=== PATIENT | male | born 1950 | race Caucasian/White ===

== ENCOUNTER 2016-10-24 19:04 | Observation (INO) | payer OTHER ==
[~2016-10-24] VITALS: Ht 190.5 cm; Wt 105.2 kg
[2016-10-24 19:28] VITALS: BP 135/76; PULSE 78; RESP 21; O2SAT 96
[2016-10-24] MEDS ORDERED: BIMA2.5D5 AFFECT_EYE (19:32)
[2016-10-24 19:54] LABS: BASOPHILS % (AUTO) 0.4 % (0-3); EOSINOPHILS % (AUTO) 1.5 % (0-5); MONOCYTES % (AUTO) 11.2 % (4-12); Mean Corpuscular Hemoglobin 29.9 pg (27.0-35.0); Mean Corpuscular Volume 87.6 fL (81-100); NEUTROPHILS % (AUTO) 54.3 % (40-74); Platelet Count 183 bil/L (150-400)
--- NOTE | 2016-10-24 20:00 | ED.REPORT ---
HPI-General Illness Date of Service Oct 24, 2016 ED Provider: Jagdeep Felix MD A 66 year old male with a history of throat cancer is brought to the ED via EMS due to a syncopal episode. The pt was at home and had consumed alcohol and marijuana when he experienced this episode. He was sitting at the time and did not fall. The pt was unconscious for a few moments until a family member applied a wet cloth to his neck. Paramedics found the pt pale and diaphoretic with a postural blood pressure and an abnormal EKG in the field. The pt was given aspirin en route. He now feels "slightly out of sorts" and believes that his symptoms can be attributed to his fairly heavy marijuana use this evening. He denies chest pain, abdominal pain, shortness of breath, palpitations or headache. The pt experienced similar symptoms once many years ago. Nursing Notes Stated Complaint: SYNCOPE Chief Complaint: Chest Pain Nursing Notes Reviewed: Yes Allergies: Coded Allergies: Sulfa (Sulfonamide Antibiotics) (Verified Allergy, Unknown, 10/24/16) codeine (Verified Allergy, Unknown, 10/24/16) Scheduled Bimatoprost (Lumigan) 45 Drop/2.5 Ml Ophsoln 45 DROP AFFECT_EYE HS General Time Seen by MD: 19:25 Chief Complaint Other (syncope) Hx Obtained From: Patient, EMS Arrived By: Ambulance Sudden in Onset?: Yes Onset Occurred: 1 - 4 hours ago Recent Healthcare: No recent doctor visit, No recent hospitalization Similar Sx Previous: No Past Medical History Past Medical History throat cancer Past Surgical History biopsies Smoking History Unknown if Ever Smoker Social History Alcohol Use: "Social" Drug Use: THC Other Social History: Good social support, Ambulatory Status Independent Review of Systems pale Full Review of Systems Respiratory: Denies: Non-productive cough, Shortness of breath Cardiovascular: Denies: Chest pain, Palpitations GI: Denies: Abdominal pain, Diarrhea, Nausea, Vomiting Musculoskeletal: Denies: Back pain Skin: Reports Diaphoresis, Denies Rash Neurologic: Reports: Syncope, Denies: Headache Complete sys rev & neg: except as marked. Physical Exam Constitutional: Well-developed, well-nourished. Not diaphoretic. Head: Normocephalic and atraumatic. Mouth/Throat: Oropharynx is clear and moist. No oropharyngeal exudate. Eyes: EOM are normal. Pupils are equal, round, and reactive to light. Neck: Supple, no tracheal deviation. Cardiovascular: Normal rate, regular rhythm. Equal and intact distal pulses throughout. Normal S1 and S2. No murmurs, rubs or gallops. Pulmonary/Chest: Effort normal and breath sounds normal. No respiratory distress. Abdominal: Soft. No distension. There is no tenderness, rebound, or guarding. Bowel sounds present. Musculoskeletal: Range of motion grossly intact, moving all extremities. No edema or tenderness appreciated. Neurological: AOx3. Grossly nonfocal exam. Strength and sensation intact and equal to bilateral upper and lower extremities. Skin: Warm and dry, no rashes or pallor appreciated. Psychiatric: Appropriate mood and affect. Behavior appears normal. Vital Signs Vital Signs Date Time Temp Pulse Resp B/P Pulse Ox O2 Delivery O2 Flow Rate FiO2 10/24/16 21:08 76 10 136/71 97 Room Air 10/24/16 19:28 36.4 78 21 135/76 96 Room Air Initial VS: Reviewed Interpretation & Diagnostics Lab Results Interpretation Result Diagram: 10/24/16194310/24/161943 Test 10/24/16 19:44 10/24/16 19:50 White Blood Count 5.5th/mm3 (3.8-10.1) Red Blood Count 5.09mil/mm3 (4.40-5.80) Hemoglobin 15.2g/dL (13.8-17.2) Hematocrit 44.6% (41.0-50.0) Mean Corpuscular Volume 87.6fL (81-100) Mean Corpuscular Hemoglobin 29.9pg (27.0-35.0) Mean Corpuscular Hemoglobin Concent 34.1% (32.0-37.0) Red Cell Distribution Width 12.6% (12.3-15.4) Platelet Count 183bil/L (150-400) Neutrophils (%) (Auto) 54.3% (40-74) Lymphocytes (%) (Auto) 32.4% (14-46) Monocytes (%) (Auto) 11.2% (4-12) Eosinophils (%) (Auto) 1.5% (0-5) Basophils (%) (Auto) 0.4% (0-3) Sodium Level 139mEq/L (134-144) Potassium Level 3.6mEq/L (3.5-5.2) Chloride Level 103mEq/L (97-108) Carbon Dioxide Level 21mmol/L (18-29) Blood Urea Nitrogen 14mg/dL (8-27) Creatinine 0.86mg/dL (0.76-1.27) Estimat Glomerular Filtration Rate 94mL/min (>59) Glucose Level 120mg/dL (60-99) Calcium Level 8.9mg/dL (8.5-10.1) Magnesium Level 1.9mg/dL (1.6-2.6) Total Bilirubin 0.4mg/dL (0.0-1.2) Aspartate Amino Transf (AST/SGOT) 18U/L (0-50) Alanine Aminotransferase (ALT/SGPT) 15U/L (0-44) Alkaline Phosphatase 54U/L (25-160) Troponin T < 0.010ug/L (0.0-0.011) Total Protein 6.7g/dL (6.4-8.4) Albumin 3.7g/dL (3.4-5.0) Hold Spencer Top Tube Received (Received) ECG Interpretation ECG Interpretation: normal sinus rhythm with a rate of [address] interval [address] ST elevation, lateral leads Time: 19:33 Interpreted by: ED physician X-Ray Chest Interpretation Chest Xray Interpretation: IMPRESSION: No acute disease. Dictated by: Pa Westbrook M.D. on 10/24/2016 at 20:25 Approved by: Pa Westbrook M.D. on 10/24/2016 at 20:27 Interpretation / Wet Read by: Interpret - Radiologist CT Head Interpretation IMPRESSION: No acute intracranial process Dictated by: Pa Westbrook M.D. on 10/24/2016 at 21:38 Approved by: Pa Westbrook M.D. on 10/24/2016 at 21:40 Interpretation / Wet Read by: Interpret - Radiologist Re-Eval/Medical Decision Med Decision/Clinical Course In summary, 66-year-old male presenting to the ED for evaluation after syncopal episode shortly prior to arrival. He did not have any chest pain, palpitations , or dyspnea surrounding the incident that would suggest a cardiac cause, however his EKG does demonstrate some nonspecific ST changes in the lateral leads. The EMS EKGs did seem to have some ST elevation in the lateral leads without reciprocal change. No known cardiac history. However, given his age and these changes, he is at high risk for a serious cause for his syncope and needs admission for telemetry, further evaluation and management, possible stress test/echo. Source of Hx: Old records Time of Eval: 21:04 Patient Status: Condition improved Re-Evaluation/Progress Note: Pt rechecked, who is resting. He is informed of his EKG findings and the need for admission. The pt understands and agrees with the plan. All questions are addressed at this time. Consultation : Referral / Consult Name: Deysi Law DO Consulted With: Hospitalist Call Returned at: 21:25 Principal Biostatistician: Agrees with eval, Agrees with plan, Accepts admit Note: Spoke with Dr. Law, hospitalist, regarding pt's case. Dr. Law agrees with the evaluation and agrees to admit the pt. Counseled Regarding: Diagnosis, Lab results, Need for admission Discharge & Departure Primary Impression: Syncope Syncope type: unspecified Qualified Code: R55 - Syncope and collapse Disposition: ADMITTED TO HOSPITAL Discharge Condition All VS Reviewed: Yes Condition: Stable Referrals: [facility] Scribe Attestation Portions of this note were transcribed by Janell Rocha. I, Dr. Felix personally performed the history, physical exam and medical decision-making; I reviewed and confirmed the accuracy of the information in the transcribed note. Signed by: Luana Stanford, 10/24/2016 and 2147. copies to: [facility] Jagdeep Felix MD Oct 24, 2016 20:00 JANELL ROCHA Oct 24, 2016 20:37
--- NOTE | 2016-10-24 20:28 | DRSVH ---
PROCEDURE: X-RAY CHEST ONE VIEW, PORTABLE ([id number]) INDICATIONS: SYNCOPE TECHNIQUE: One view of the chest was acquired. COMPARISON: None. FINDINGS: Surgical changes and devices: Numerous clips projecting in left base of neck. Lungs and pleura: No pleural effusions or pneumothorax. Lungs are clear. Mediastinum: Mediastinal contours appear normal. Heart size is normal. Bones and chest wall: No suspicious bony lesions. Overlying soft tissues appear unremarkable. IMPRESSION: No acute disease. Dictated by: Pa Westbrook M.D. on 10/24/2016 at 20:25 Approved by: Pa Westbrook M.D. on 10/24/2016 at 20:27
[2016-10-24 20:30] LABS: TROPONIN T < 0.010 ug/L (0.0-0.011)
[2016-10-24 20:39] LABS: Magnesium 1.9 mg/dL (1.6-2.6)
[2016-10-24 21:08] VITALS: BP 136/71; PULSE 76; RESP 10; O2SAT 97
--- NOTE | 2016-10-24 21:42 | DRSVH ---
PROCEDURE: CT BRAIN WITHOUT CONTRAST ([id number]) INDICATIONS: syncope, hx of ?throat cancer TECHNIQUE: Noncontrast 4.5 mm thick angled axial sections acquired from the foramen magnum to the vertex, with c oronal reformats. COMPARISON: None. FINDINGS: Image quality: Excellent. CSF spaces: Basal cisterns are patent. No extra-axial fluid collections. The ventricles are symmet juanjose in size and shape. Brain: No intracranial bleeds or masses. There is cerebral volume loss for age, with resultant vent ricular and sulcal prominence. There are periventricular and deep white matter chronic small vessel ischemic changes. There is intracranial internal carotid artery atherosclerosis. Skull and face: Calvarium and visualized facial bones appear intact, without suspicious lesions. Sinuses: Visualized sinuses and mastoids are clear. IMPRESSION: No acute intracranial process Dictated by: Pa Westbrook M.D. on 10/24/2016 at 21:38 Approved by: Pa Westbrook M.D. on 10/24/2016 at 21:40
[2016-10-24] MEDS ORDERED: Alum-Mag Hydrox-Simeth 30 mL Suspension PO PRN ×2 (22:00)
[2016-10-24] MEDS ORDERED: Ondansetron 2 mg/mL 2 mL Inj IVPUSH PRN ×2 (22:00)
[2016-10-24] MEDS ORDERED: Polyethylene Glycol (PEG) 17 Gm Powder PO PRN (22:00)
--- NOTE | 2016-10-24 22:19 | PCM.HPMED ---
Subjective Date of Service Oct 24, 2016 Primary Provider: Admitting Physician: Deysi Law DO Primary Care Physician: Florecita Attending Physician: Deysi Law DO Admit Status: From the Emergency Department Chief Complaint: Loss of consciousness History of Present Illness: Jagdeep Moody is a pleasant 66-year-old gentleman history of throat cancer 9 years ago with recurrence 9 months ago status post resection, who presented to the [facility] emergency department via EMS after suffering a syncopal event. She describes being at a Father's Day celebration, having eaten dinner, and drank a couple glasses of wine, and then inhaled marijuana with some friends. He began to feel lightheaded and dizzy and sat down, and lost consciousness. He is accompanied by his to states he was probably out for at least 90 seconds, long enough for her to apply stimuli to his face, and then move him to the floor, apply cold washcloth to his neck and called EMT. He had similar instances roughly 30 years ago after consuming alcohol and smoking marijuana, he was never given an explanation for the event at that time. Currently ROS is cuevas negative. He denies any prodrome, any changes in vision or lites, denies preceding palpitations or tachycardia, denies any twitches or epileptiform activity, no gagging, continued breathing throughout the entire episode, not postictal. In the emergency department, temperature 36.4, 78, 21, 135/76, 96% on room air CBC unremarkable, CMP blood glucose 120, troponin negative EKG sinus rhythm, normal axis, rate 77, SC interval [address] elevation in lateral leads. Chest x-ray and head CT were negative for acute disease processes. Review of Systems: A comprehensive review of systems was conducted with the patient and found to be negative except as above in the history of presenting illness. 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 Both parents in their 80s. Social History Occupation: retired construction Hx Alcohol Use: Yes Hx Substance Use: Yes (marijuana couple times a week) Hx Tobacco Use: No Smoking Status: Never Smoker Living Arrangement: with Family Exam Vital Signs Vital Sign - Last Date Time Temp Pulse Resp B/P Pulse Ox O2 Delivery O2 Flow Rate FiO2 10/24/16 21:08 76 10 136/71 97 Room Air 10/24/16 19:28 36.4 Exam General: Laying in bed, no apparent distress. HEENT: Normocephalic, atraumatic, EOMI grossly, his membranes moist, neck supple without lymphadenopathy. PERRLA area Cardiovascular: Regular rate and rhythm, no clicks murmurs rubs, peripheral pulses 2/4 equal bilaterally Pulmonary: Clear to auscultation bilaterally, no W/R/R. Abdominal: Soft to palpation, bowel sounds present 4, no hepatosplenomegaly. Negative rebound. Extremities: No edema appreciated. No tenderness, asymmetry. Neuro: Neurologically grossly intact, strength is equal bilaterally upper and lower extremities.cranial nerves II through XII grossly intact MSK: Gait is normal, able to move extremities on their own volition, strength 5 out of 5 equal bilaterally to upper and lower extremities. Psych: Alert and oriented to person, time, place and situation, appropriate mood and affect Lab and Diagnostics Result Diagram: 10/24/16194310/24/161943 X-Rays, CTs and MRIs Chest x-ray performed 10/24/2016 IMPRESSION: No acute disease. Dictated by: Pa Westbrook M.D. on 10/24/2016 at 20:[address] w/o contrast from 10/24/2016 IMPRESSION: No acute intracranial process Dictated by: Pa Westbrook M.D. on 10/24/2016 at 21:38 12-lead ECG EKG sinus rhythm, normal axis, rate 77, SC interval [address] elevation in lateral leads. Assessment & Plan 66-year-old gentleman with history of throat cancer, reportedly in remission, presents after syncopal event after smoking marijuana and consuming alcohol. Syncopal event, POA, active -EKG positive for first-degree heart block, borderline ST elevation in lateral leads, electrolytes, blood sugar, head CT, chest x-ray, otherwise unremarkable. -Repeat EKG in the morning -Cardiac stress test in the morning -Tox screen -Orthostatics -Trend troponins every 4 hours -Place on telemetry for concern of nonsustained arrhythmia as etiology. First-degree heart block, probably chronic, POA, active -SC interval 248 ms, except for above-mentioned syncopal episode, previously asymptomatic. -Evaluation as above Chronic glaucoma, POA, active -Continue home medication bimatoprost -Heart block and syncope are not listed as known complications from this medication. Patient admitted under observation status with expected length of stay < 2 midnights for severity of present symptoms, complexities of treatment plan and risk for adverse events Pain Evaluation: Adequate Pain Control GI Prophylaxis: Not indicated VTE Prophylaxis: Sub-Q Heparin (Unfractionated) Resuscitation Status: CPR: Attempt Resuscitation Attending Statement The patient was seen and examined together with house staff on 10/24/2016 and I agree with the history, exam and plan as outlined in the note above. Ross Solis DO Oct 24, 2016 22:19 Deysi Law DO Oct 25, 2016 05:30
[2016-10-24 22:25] VITALS: BP 130/80; PULSE 77; RESP 18; O2SAT 95
[2016-10-24 22:54] VITALS: BP_SYST 149; BP_SYST 158; BP_DIAS 88; BP_DIAS 91; PULSE 79; PULSE 81
[2016-10-24 23:39] VITALS: PULSE 67
[2016-10-25] MEDS: Heparin 5,000 Unit/mL Inj SUBQ SCH ×2 (00:25→08:11)
[2016-10-25 04:58] VITALS: BP 127/72; PULSE 75; RESP 18; O2SAT 95
[2016-10-25 05:18] LABS: APPEARANCE,URINE CLEAR (CLEAR,HAZY); COLOR,URINE YELLOW (YELLOW); OCCULT BLOOD,URINE NEGATIVE (NEGATIVE); PH,URINE 5.5 (5.0-8.0); UROBILINOGEN,URINE NORMAL (NORMAL)
[2016-10-25 05:30] LABS: BASOPHILS % (AUTO) 0.2 % (0-3); EOSINOPHILS % (AUTO) 1.1 % (0-5); MONOCYTES % (AUTO) 10.5 % (4-12); Mean Corpuscular Hemoglobin 29.7 pg (27.0-35.0); Mean Corpuscular Volume 88.2 fL (81-100); NEUTROPHILS % (AUTO) 68.3 % (40-74); Platelet Count 183 bil/L (150-400)
--- NOTE | 2016-10-25 06:08 | NUR ---
Admit/Ortho's Pt arrived from the ED to [facility] room 3009. Denies chest pain, sob, n/v or abd discomfort. Explained the care plan to the pt. Pt verbalizes understanding about the care plan. Ortho VS done. No drop in SBP from lying to standing position. Pt has been NPO since SD for upcoming stress test. Telemetry monitoring noted SR 70's with 1st degree heart block. UA sent to lab and 12 lead EKG done by RT.
--- NOTE | 2016-10-25 08:56 | NUR ---
Pt off floor for Stress Test
[2016-10-25 10:10] VITALS: PULSE 71
[2016-10-25 12:46] VITALS: BP 133/85; PULSE 72; RESP 18; O2SAT 94
--- NOTE | 2016-10-25 13:57 | NUR ---
Social Work-initial assessment /readiness for discharge: Data:See initial assessment. Pt is a 66 y/o male who was admitted on 10/24/16 for syncope per H&P. Pt's insurance is [employer] and No PCP listed. EMR reviewed. SASHA met with pt and Radha at bedside, SW role explained. Pt is alert and oriented x3. Pt resides at home with his where he remains independent with ADLs. Pt drives and does not use any DME. Pt has no HH or SNF history. Pt has no fpc care or VA benefits. Pt and have not completed DPOA/ advanced directive and are not not interested in any information at this time. Per RN notes, pt has been up independent in his room. Pt's to provide transport home at discharge. SW provided phone number and plan on white board in room. No discharge needs identified. SW will continue to follow if needs arise. Assessment:Pt who is independent at baseline. Plan:Pt to discharge home when medically stable via POV. No discharge needs identified. SW will continue to follow if needs arise. YOBANY Lucas Addendum: 10/25/16 at 1402 by BABATUNDE CATALAN Amended: Links added.
--- NOTE | 2016-10-25 15:38 | DRSVH ---
PROCEDURE: 1 DAY TREADMILL STRESS TEST Rest and exercise myocardial perfusion SPECT with gated imaging and ejection fraction RADIOPHARMACEUTICAL: 8.3 mCi Tc-99m tetrafosmin IV at rest and 30.1 mCi Tc-99m tetrafosmin IV at peak exercise. [id number] was performed. INDICATIONS: SYNCOPE. TECHNIQUE: Radiopharmaceutical was injected at peak stress test, and also at rest. SPECT images wer e obtained. SPECT myocardial perfusion images were displayed in short axis, horizontal long axis, an d vertical long axis views. Gated images were reviewed using GoPollGoQU[employer] software. COMPARISON: None. CARDIAC STRESS: A standard George treadmill exercise tolerance test was performed by the patient under the supervision of an attending staff. The patient exercised for 6 minutes and 32 seconds; functional aerobic impai rment (ALEJANDRO) is 9%. Hemodynamic data: There is normal blood pressure and heart rate response to exercise stress. Dilip t achieved 99% of maximum predicted heart rate at peak exercise. Symptoms: Patient denied chest pain during exercise. EKG: No diagnostic EKG changes of ischemia; no ectopy. FINDINGS: Raw data: There is good myocardial labeling by radiotracer. No significant motion artifacts. Left ventricle function: Gated images demonstrate normal left ventricle wall thickening. No segment al wall motion abnormality. No transient ischemic dilation. The left ventricle resting end-diastoli c volume is 95 mL. Left ventricle stress ejection fraction is 78%; normal values are above 45%. Myocardial perfusion: There is normal distribution of activity in the left and right ventricular jaja cardium. No fixed or reversible perfusion defects. IMPRESSION: 1. No visualized ischemia on stress images. 2. No EKG changes of ischemia. 3. ALEJANDRO 9%. 4. Ejection fraction 78%. PQRS ATTESTATIONS: Measure 322 - Is this imaging test primarily performed on a low-risk surgery patient for preoperative evaluation within 30 days preceding their low-risk non-cardiac surgery? Low-risk surgery is defined as cardiac or myocardial infarction less than 1%, including (but not limited to) endoscopic pr ocedures, superficial procedures, cataract surgery, and excisional breast surgery: Answer: No Measure 323 - Is this imaging test performed primarily for the monitoring of an asymptomatic patient who had percutaneous coronary intervention on the visit date or within 2 years of the visit date? An swer: No Measure 324 - Is this imaging test performed primarily for the initial detection and risk assessment on an asymptomatic, low coronary heart disease patient? Low CHD risk definition = clinicians should consider the maximum number of available patient factors used to estimate risk based on [place] (A TP III criteria), typically age, gender, diabetes, smoking status, and use of blood pressure medicati on, and integrate age appropriate estimates for missing elements, such as LDL or standard blood press ure. Answer: No Dictated by: Petty Prescott M.D. on 10/25/2016 at 15:31 Approved by: Petty Prescott M.D. on 10/25/2016 at 15:36
--- NOTE | 2016-10-25 15:50 | PCM.DIMED ---
Discharge Instructions Date of Service Oct 25, 2016 Dates of Hospitalization Oct 24, 2016 at 21:40 Discharge Diagnosis Discharge Diagnosis # Syncopal event, POA, active -Due to combination of alcohol and marijuana use #Chronic glaucoma, POA, active Diet Discharge Diet: No restrictions Activity Discharge Activity: Limited until seen by PCP Call your provider Call your provider for: Fever or Chills, Shortness of breath, Bleeding, Chest pain, Vomitting, Excessive diarrhea, Weakness (unilateral) Patient Instructions Patient Instructions You were hospitalized to due to syncopal episode. Episode seems to be related to combined effect of alcohol and marijuana use. Please avoid using alcohol and marijuana. Stress test is negative. Follow-up with PCP in: 1 week James Osborne MD Oct 25, 2016 15:50
--- NOTE | 2016-10-25 15:51 | NUR ---
Social Work-discharge: Data:EMR Reviewed. Pt is on day 1 of hospitalization for syncope per H&P. Pt is medically stable for discharge. Pt has been up independent in his room. Pt's family to provide transport home today. No discharge needs identified. All updated and agreeable to plan. Assessment:Pt who is independent at baseline. Plan:Pt to discharge home today via POV. No discharge needs identified. All updated and agreeable to plan. YOBANY Lucas
--- NOTE | 2016-10-25 15:55 | PCM.DC.MED ---
Discharge Summary Date of Service Oct 25, 2016 Dates of Hospitalization Date of Hospital Admission Oct 24, 2016 at 21:40 Date of Discharge: Oct 25, 2016 Providers: Admitting Physician: Deysi Law DO Primary Care Physician: Florecita Attending Physician: Deysi Law DO Diagnosis at Time of Discharge Diagnosis at Time of Discharge # Syncopal event, POA, active -Due to combination of alcohol and marijuana use #Chronic glaucoma, POA, active Consultations none Procedures XRay, CTs & MRIs Chest x-ray performed 10/24/2016 IMPRESSION: No acute disease. Dictated by: Pa Westbrook M.D. on 10/24/2016 at 20:[address] w/o contrast from 10/24/2016 IMPRESSION: No acute intracranial process Dictated by: Pa Westbrook M.D. on 10/24/2016 at 21:38 ECG 12 Lead EKG sinus rhythm, normal axis, rate 77, LA interval [address] elevation in lateral leads. Other Diagnostics stress test IMPRESSION: 1. No visualized ischemia on stress images. 2. No EKG changes of ischemia. 3. AELJANDRO 9%. 4. Ejection fraction 78%. PQRS ATTESTATIONS: Measure 322 - Is this imaging test primarily performed on a low-risk surgery patient for preoperative evaluation within 30 days preceding their low-risk non- cardiac surgery? Low-risk surgery is defined as cardiac or myocardial infarction less than 1%, including (but not limited to) endoscopic procedures, superficial procedures, cataract surgery, and excisional breast surgery: Answer : No Measure 323 - Is this imaging test performed primarily for the monitoring of an asymptomatic patient who had percutaneous coronary intervention on the visit date or within 2 years of the visit date? Answer: No Measure 324 - Is this imaging test performed primarily for the initial detection and risk assessment on an asymptomatic, low coronary heart disease patient? Low CHD risk definition = clinicians should consider the maximum number of available patient factors used to estimate risk based on [place] ( ATP III criteria), typically age, gender, diabetes, smoking status, and use of blood pressure medication, and integrate age appropriate estimates for missing elements, such as LDL or standard blood pressure. Answer: No Dictated by: Petty Prescott M.D. on 10/25/2016 at 15:31 Brief History per HPI Jagdeep Moody is a pleasant 66-year-old gentleman history of throat cancer 9 years ago with recurrence 9 months ago status post resection, who presented to the [facility] emergency department via EMS after suffering a syncopal event. She describes being at a Father's Day celebration, having eaten dinner, and drank a couple glasses of wine, and then inhaled marijuana with some friends. He began to feel lightheaded and dizzy and sat down, and lost consciousness. He is accompanied by his to states he was probably out for at least 90 seconds, long enough for her to apply stimuli to his face, and then move him to the floor, apply cold washcloth to his neck and called EMT. He had similar instances roughly 30 years ago after consuming alcohol and smoking marijuana, he was never given an explanation for the event at that time. Currently ROS is cuevas negative. He denies any prodrome, any changes in vision or lites, denies preceding palpitations or tachycardia, denies any twitches or epileptiform activity, no gagging, continued breathing throughout the entire episode, not postictal. In the emergency department, temperature 36.4, 78, 21, 135/76, 96% on room air CBC unremarkable, CMP blood glucose 120, troponin negative EKG sinus rhythm, normal axis, rate 77, LA interval [address] elevation in lateral leads. Chest x-ray and head CT were negative for acute disease processes. Hospital Course 66-year-old gentleman with history of throat cancer, reportedly in remission, presents after syncopal event after smoking marijuana and consuming alcohol. #Syncopal event Due to combination of alcohol and marijuana use, POA, active -EKG positive for first-degree heart block, borderline ST elevation in lateral leads, electrolytes, blood sugar, head CT, chest x-ray, otherwise unremarkable. -Cardiac stress test negative -Trend troponins negative -telemetry unrevealing -Advised to avoid use of alcohol and marijuana. Patient had similar symptoms 30 years ago when he last used marijuana #First-degree heart block, probably chronic, POA, active -LA interval 248 ms, except for above-mentioned syncopal episode, previously asymptomatic. -Evaluation as above #Chronic glaucoma, POA, active -Continue home medication bimatoprost Disposition: Discharge home Condition on discharge stable Exam Vital Signs (Last) Date Time Temp Pulse Resp B/P Pulse Ox O2 Delivery O2 Flow Rate FiO2 6/19/17 12:46 36.5 72 18 133/85 94 Room Air Exam General: Laying in bed, no apparent distress. HEENT: Normocephalic, atraumatic, EOMI grossly, his membranes moist, neck supple without lymphadenopathy. PERRLA area Cardiovascular: Regular rate and rhythm, no clicks murmurs rubs, peripheral pulses 2/4 equal bilaterally Pulmonary: Clear to auscultation bilaterally, no W/R/R. Abdominal: Soft to palpation, bowel sounds present 4, no hepatosplenomegaly. Negative rebound. Extremities: No edema appreciated. No tenderness, asymmetry. Neuro: Neurologically grossly intact, strength is equal bilaterally upper and lower extremities.cranial nerves II through XII grossly intact MSK: Gait is normal, able to move extremities on their own volition, strength 5 out of 5 equal bilaterally to upper and lower extremities. Psych: Alert and oriented to person, time, place and situation, appropriate mood and affect Test 10/24/16 19:44 10/24/16 19:50 10/25/16 04:40 10/25/16 05:00 Magnesium Level 1.9mg/dL (1.6-2.6) Total Bilirubin 0.4mg/dL (0.0-1.2) Aspartate Amino Transf (AST/SGOT) 18U/L (0-50) Alanine Aminotransferase (ALT/SGPT) 15U/L (0-44) Alkaline Phosphatase 54U/L (25-160) Total Protein 6.7g/dL (6.4-8.4) Albumin 3.7g/dL (3.4-5.0) Hold Spencer Top Tube Received (Received) White Blood Count 5.5th/mm3 (3.8-10.1) Red Blood Count 5.08mil/mm3 (4.40-5.80) Hemoglobin 15.1g/dL (13.8-17.2) Hematocrit 44.8% (41.0-50.0) Mean Corpuscular Volume 88.2fL (81-100) Mean Corpuscular Hemoglobin 29.7pg (27.0-35.0) Mean Corpuscular Hemoglobin Concent 33.7% (32.0-37.0) Red Cell Distribution Width 12.9% (12.3-15.4) Platelet Count 183bil/L (150-400) Neutrophils (%) (Auto) 68.3% (40-74) Lymphocytes (%) (Auto) 19.7% (14-46) Monocytes (%) (Auto) 10.5% (4-12) Eosinophils (%) (Auto) 1.1% (0-5) Basophils (%) (Auto) 0.2% (0-3) Sodium Level 141mEq/L (134-144) Potassium Level 4.4mEq/L (3.5-5.2) Chloride Level 105mEq/L (97-108) Carbon Dioxide Level 23mmol/L (18-29) Blood Urea Nitrogen 16mg/dL (8-27) Creatinine 0.86mg/dL (0.76-1.27) Estimat Glomerular Filtration Rate 94mL/min (>59) Glucose Level 117mg/dL (60-99) Calcium Level 9.1mg/dL (8.5-10.1) Troponin T 0.010ug/L (0.0-0.011) Urine Color Yellow (YELLOW) Urine Appearance Clear (CLEAR,HAZY) Urine pH 5.5 (5.0-8.0) Urine Specific [place] 1.030 (1.003-1.035) Urine Protein Tracemg/dL (NEG,TRACE) Urine Glucose (UA) Negativemg/dL (NEGATIVE) Urine Ketones Negativemg/dL (NEGATIVE) Urine Occult Blood Negative (NEGATIVE) Urine Nitrite Negative (NEGATIVE) Urine Bilirubin Negative (NEGATIVE) Urine Urobilinogen Normalmg/dL (NORMAL) Urine Leukocyte Esterase Negative (NEGATIVE) Urine RBC 0-2/hpf (0-2) Urine WBC 0-5/hpf (0-5) Urine Epithelial Cells Occasional/hpf (NONE-MOD) Urine Crystals None seen (NONE SEEN) Urine Bacteria Few/hpf (NONE-FEW) Urine Hyaline Casts 5/20/lpf (NONE) Urine Granular Casts None seen (NONE SEEN) Urine Waxy Casts None seen (NONE SEEN) Urine Red Blood Cell Casts None seen (NONE SEEN) Urine White Blood Cell Casts None seen (NONE SEEN) Urine Mucus Present (None Seen) Urine Trichomonas None seen (NONE SEEN) Urine Yeast None (NONE SEEN) Urinalysis Comment None Urine Culture Reflexed Not indicated Urine Opiates Screen Negative Urine Methadone Screen Negative Urine Barbiturates Screen Negative Urine Amphetamines Screen Negative Urine Benzodiazepines Screen Negative Urine Cocaine Metabolite Screen Negative Urine Cannabinoids Screen Positive Discharge Medications Discharge Medications Bimatoprost (Lumigan) 45 Drop/2.5 Ml Ophsoln 45 DROP AFFECT_EYE HS (Reported) Followup Plan Disposition: Home Discharge Diet: No restrictions Discharge Activity: Limited until seen by PCP Patient Instructions You were hospitalized to due to syncopal episode. Episode seems to be related to combined effect of alcohol and marijuana use. Please avoid using alcohol and marijuana. Stress test is negative. Follow-up with PCP in: 1 week James Osborne MD Oct 25, 2016 15:55
--- NOTE | 2016-10-25 16:13 | NUR ---
Discharge Reviewed discharge paperwork and care notes with pt, disclaimer signed. IV DCd intact, tele removed, all belongings with pt. Pt denies pain and SOB. Pt declines WC escort and prefers to walk out on foot. Strong and steady on feet. Pt leaving with .
== END 2016-10-25 16:10 | disposition home or self-care (01) ==
LOC: EDBD 19:04 → SED 19:04 → MPC 21:40
PROVIDERS: ADMIT Internal Medicine; ATTEND Internal Medicine
DX: T40.7X1A Poisoning by cannabis (derivatives), accidental (unintentional), initial encounter (principal); T51.0X1A Toxic effect of ethanol, accidental (unintentional), initial encounter; R55 Syncope and collapse; I44.0 Atrioventricular block, first degree; H40.89 Other specified glaucoma; R94.31 Abnormal electrocardiogram [ECG] [EKG]; F12.90 Cannabis use, unspecified, uncomplicated; F10.20 Alcohol dependence, uncomplicated; Z85.89 Personal history of malignant neoplasm of other organs and systems; Z88.8 Allergy status to other drugs, medicaments and biological substances; Z72.89 Other problems related to lifestyle
CPT/HCPCS: 36415; 70450; 71010; 78452; 80048; 80053; 81000; 82948; 83735; 84484; 85025; 93005; 93017; 99285; A9502; G0378; G0480; J1644